=== PATIENT | male | born 1985 | race Caucasian/White ===

== ENCOUNTER 2017-04-30 16:00 | Emergency (ER) | payer OTHER ==
[~2017-04-30] VITALS: Ht 167.6 cm; Wt 79.4 kg
[2017-04-30 16:23] VITALS: BP 147/96
[2017-05-01 11:55] LABS: Hepatitis B Surface Antibody Positive
== END 2017-04-30 17:00 | disposition home or self-care (01) ==
LOC: ER 16:00
DX: S61.230A Puncture wound without foreign body of right index finger without damage to nail, initial encounter (principal); K21.9 Gastro-esophageal reflux disease without esophagitis; W22.8XXA Striking against or struck by other objects, initial encounter; Y93.89 Activity, other specified; Y92.89 Other specified places as the place of occurrence of the external cause; Y99.8 Other external cause status
CPT/HCPCS: 36415; 86703; 86706; 86803; 87340